=== PATIENT | male | born 1995 | race Caucasian/White ===

== ENCOUNTER 2022-07-11 19:30 | Emergency (ER) | payer OTHER ==
[2022-07-11] MEDS ORDERED: Sodium Chloride 0.9% 1,000 ML IV ONE (19:31)
[2022-07-11] MEDS ORDERED: Aspirin 81 MG Tab.Chew PO ONE (20:03)
[2022-07-11] MEDS ORDERED: Potassium Chloride 10 MEQ Tab.ER PO ONE (20:10)
[2022-08-04 11:26] LABS: CHLORIDE,CL 100 mEq/L (98-106); SODIUM,NA 138 mEq/L (136-145)
[2022-08-04 11:27] LABS: ESTIMATED GFR 60 mL/min (>=60)
== END 2022-07-11 21:10 | disposition home or self-care (01) ==
LOC: CC.ED 19:30
DX: R55 Syncope and collapse (principal); E87.6 Hypokalemia; R94.31 Abnormal electrocardiogram [ECG] [EKG]; I10 Essential (primary) hypertension; F17.290 Nicotine dependence, other tobacco product, uncomplicated; Z20.822 Contact with and (suspected) exposure to COVID-19
CPT/HCPCS: 36415; 80053; 84484; 85025; 93005; 93010; 99284; 99285; A9270-GY; J7030; U0002